=== PATIENT | female | born 1965 | race Caucasian/White ===

== ENCOUNTER 2024-04-03 14:57 | Outpatient (CLI) | payer MEDICAID, OTHER ==
[~2024-04-03 14:57] MED LIST: HYDR12.522 PO; IBUP-1984 PO; LISI20TA28 PO; SUMA25TA35 PO
== END 2024-04-03 23:59 | disposition home or self-care (01) ==
LOC: MRI 14:57
PROVIDERS: ATTEND Physician Assistant
DX: S83.92XA Sprain of unspecified site of left knee, initial encounter (principal); M11.262 Other chondrocalcinosis, left knee; M25.462 Effusion, left knee; M25.562 Pain in left knee; M25.532 Pain in left wrist
CPT/HCPCS: 73221; 73721

== ENCOUNTER 2024-08-19 06:01 | Outpatient (CLI) | payer MEDICAID ==
[2024-08-19] MEDS ORDERED: iohexol 300 MG/1 ML 50ml polymer ONE (06:33)
[2024-08-19] MEDS ORDERED: LIDOcaine 1% 30ml preserv. free vial ONE (06:33)
[2024-08-19] MEDS ORDERED: LIDOcaine 1%/PF 5ML 10 MG/ML VIAL ONE (06:34)
[2024-08-19] MEDS ORDERED: GADOTERATE MEGLUMINE 7.5 MMOL/15 ML VIAL IV ONE (06:34)
== END 2024-08-19 23:59 | disposition home or self-care (01) ==
LOC: RAD 06:01
PROVIDERS: ATTEND Physician Assistant
DX: M25.532 Pain in left wrist (principal); M65.842 Other synovitis and tenosynovitis, left hand
CPT/HCPCS: 25246; 73222; 77002; A9575; J2003; J3490; Q9967; 73115